=== PATIENT | male | born 1935 | race Caucasian/White ===

== ENCOUNTER 2022-05-28 16:11 | Inpatient (IN) | payer MEDICARE ==
[~2022-05-28] VITALS: Ht 177.8 cm; Wt 76.4 kg
[~2022-05-28 16:11] MED LIST: DIGOXIN0.25 MG PO; PRILOSEC20 MG OR; SG ASA LOW81 MG OR; TYLENOL 500MG TAB PO; ZOCOR20 MG OR
[2022-05-28 17:01] VITALS: BP 154/77
[2022-05-28 19:00] VITALS: BP 113/73
[2022-05-28 19:19] VITALS: BP 113/73
[2022-05-28 23:05] LABS: HEMATOCRIT 39.5 % (39.0-50.0); HEMOGLOBIN 12.7 g/dl (14.0-18.0); IMMATURE GRANULOCYTES 0.2 % (0.0-5.0); MEAN CELL VOLUME 86.6 fL CALC (80.0-100.0); MEAN CORPUSCULAR HGB 27.9 pG CALC (26.0-32.0); MEAN CORPUSCULAR HGB CONC 32.2 g/dL CAL (32.0-36.0); NEUT# 3.23 thou/uL (1.82-7.42); RED BLOOD COUNT 4.56 mill/uL (4.70-6.10); RED CELL DISTRI WIDTH 12.9 % (11.5-15.5)
[2022-05-28 23:21] LABS: ALBUMIN 3.3 g/dL (3.2-5.0); ALKALINE PHOSPHATASE 68 u/l (38-126); ANION GAP 9 (6-22 (CALC)); BILIRUBIN, TOTAL 0.5 mg/dL (0.0-1.4); BUN 23 mg/dL (8-23); BUN/CREATININE RATIO 22 (12-20 (CALC)); CHLORIDE 108 mmol/l (95-108); GFR FOR AFR.AMER. > 60 ML/MIN (>=60 (CALC)); GFR OTHER RACES > 60 ML/MIN (>=60 (CALC)); POTASSIUM 4.1 mmol/l (3.5-5.1); SGOT/AST 21 u/l (19-48); SODIUM 136 mmol/l (137-146); TOTAL PROTEIN 6.2 g/dL (6.3-8.2)
[2022-05-28 23:59] LABS: CARBON DIOXIDE 23 mmol/l (22-30)
[2022-05-29 04:33] VITALS: BP 135/75
[2022-05-29 06:22] VITALS: BP 145/68
[2022-05-29 07:18] VITALS: BP 145/68
[2022-05-29] MEDS ORDERED: LEVOTHYROXIN25 MC1 PO (11:39)
[2022-05-29] MEDS ORDERED: LASIX 20 MG TAB20 MG PO (11:39)
[2022-05-29] MEDS ORDERED: PRAVASTATIN SOD20 MG PO (16:33)
[2022-05-29] MEDS ORDERED: CORDARONE/PACE100 MG PO (16:34)
[2022-05-29 18:30] VITALS: BP 146/92
[2022-05-29 18:48] VITALS: BP 165/96
[2022-05-29 19:10] VITALS: BP 145/89
[2022-05-30 04:08] VITALS: BP 132/74
[2022-05-30 09:30] VITALS: BP 129/64
[2022-05-30] MEDS ORDERED: CORDARONE/200 MG/TAB PO (10:46)
[2022-05-30] MEDS ORDERED: ASPIRIN ADULT L81 M2 PO (10:46)
[2022-05-30] MEDS ORDERED: PROAIR HFA IN (10:47)
[2022-05-30] MEDS ORDERED: [UNRECOGNIZED DRUG - OTHER] PO (10:47)
[2022-05-30] MEDS ORDERED: LASIX 20 MG TAB20 MG PO (10:47)
[2022-05-30] MEDS ORDERED: SYNTHROID25 MCG PO (10:48)
[2022-05-30] MEDS ORDERED: VIBRAMYCIN100 M2 PO (10:53)
[2022-05-30] MEDS ORDERED: AMOX/K CLAV875 M1 PO (10:53)
== END 2022-05-30 15:00 | disposition home or self-care (01) | DRG 728 ==
LOC: MS2 16:11
PROVIDERS: ADMIT Internal Medicine; ATTEND Internal Medicine
PROC: 0V95XZZ Drainage of Scrotum, External Approach (ICD-10-PCS; principal; 2022-05-29)
PROC: 0H9HXZZ Drainage of Right Upper Leg Skin, External Approach (ICD-10-PCS; 2022-05-29)
PROC: 0HBAXZZ Excision of Inguinal Skin, External Approach (ICD-10-PCS; 2022-05-29)
PROC: 0HBHXZZ Excision of Right Upper Leg Skin, External Approach (ICD-10-PCS; 2022-05-29)
DX: N49.2 Inflammatory disorders of scrotum (principal); L02.415 Cutaneous abscess of right lower limb; I12.9 Hypertensive chronic kidney disease with stage 1 through stage 4 chronic kidney disease, or unspecified chronic kidney disease; N18.9 Chronic kidney disease, unspecified; I48.0 Paroxysmal atrial fibrillation; E03.9 Hypothyroidism, unspecified; Z20.822 Contact with and (suspected) exposure to COVID-19
CPT/HCPCS: J0692

== ENCOUNTER 2024-04-16 08:23 | Emergency (ER) | payer MEDICARE ==
[~2024-04-16] VITALS: Ht 177.8 cm; Wt 79.0 kg
[~2024-04-16 08:23] MED LIST changes: +AMOX/K CLAV875 M1 PO; +ASPIRIN ADULT L81 M2 PO; +CORDARONE/200 MG/TAB PO; +CORDARONE/PACE100 MG PO; +LASIX 20 MG TAB20 MG PO; +LEVOTHYROXIN25 MC1 PO; +PRAVASTATIN SOD20 MG PO; +PROAIR HFA IN; +SYNTHROID25 MCG PO; +VIBRAMYCIN100 M2 PO; +[UNRECOGNIZED DRUG - OTHER] PO
[2024-04-16 08:27] VITALS: BP 128/92
[2024-04-16 08:30] VITALS: BP 123/81
[2024-04-16 08:45] VITALS: BP 125/76
[2024-04-16] MEDS ORDERED: CEPHALEXIN MONOHYDRATE 500 MG/CAP PO ONE (08:55)
[2024-04-16] MEDS ORDERED: SULFAMETHOXAZOLE W/TRIMETHOPRI 1 COMBO TAB PO ONE (08:55)
[2024-04-16 09:00] VITALS: BP 114/70
[2024-04-16 09:15] VITALS: BP 114/73
[2024-04-16] MEDS ORDERED: CEPHALEXIN500 MG PO (09:25)
[2024-04-16] MEDS ORDERED: BACTRIM DS1 TAB PO (09:25)
[2024-04-16] MEDS ORDERED: TRAMADOL HYDROC50 M1 PO (09:26)
[2024-04-16 09:30] VITALS: BP 114/73
== END 2024-04-16 09:42 | disposition home or self-care (01) ==
LOC: ED 08:23
DX: L03.012 Cellulitis of left finger (principal); I10 Essential (primary) hypertension

== ENCOUNTER 2024-06-02 09:58 | Emergency (ER) | payer MEDICARE ==
[~2024-06-02] VITALS: Ht 177.8 cm; Wt 79.3 kg
[~2024-06-02 09:58] MED LIST changes: +BACTRIM DS1 TAB PO; +CEPHALEXIN500 MG PO; +TRAMADOL HYDROC50 M1 PO
[2024-06-02 10:05] VITALS: BP 154/102
[2024-06-02 10:16] VITALS: BP 119/102
[2024-06-02 10:22] LABS: BASO% 1.3 % (0-3); EOS% 6.7 % (0-8); HEMATOCRIT 44.5 % (39.0-50.0); HEMOGLOBIN 13.8 g/dl (14.0-18.0); IMMATURE GRANULOCYTES 0.4 % (0.0-5.0); LYMPH% 23.3 % (15-41); MEAN CELL VOLUME 89.2 fL CALC (80.0-100.0); MEAN CORPUSCULAR HGB 27.7 pG CALC (26.0-32.0); NEUT# 3.1 thou/uL (1.82-7.42); NEUT% 59.3 % (42-76); RED BLOOD COUNT 4.99 mill/uL (4.70-6.10); RED CELL DISTRI WIDTH 13.5 % (11.5-15.5)
[2024-06-02 10:30] VITALS: BP 125/73
[2024-06-02 10:35] LABS: ALBUMIN 3.7 g/dL (3.2-5.0); ALKALINE PHOSPHATASE 64 u/l (38-126); ANION GAP 13 (6-22 (CALC)); BILIRUBIN, TOTAL 0.6 mg/dL (0.2-1.3); BUN 15 mg/dL (8-23); BUN/CREATININE RATIO 14 (12-20 (CALC)); CARBON DIOXIDE 28 mmol/l (22-30); CHLORIDE 104 mmol/l (95-108); CREATININE 1.1 mg/dL (0.7-1.3); ESTIMATED GFR 65 ML/MIN (>=90 (CALC)); POTASSIUM 4.1 mmol/l (3.5-5.1); SGOT/AST 25 u/l (19-48); SODIUM 141 mmol/l (137-146); TOTAL PROTEIN 6.2 g/dL (6.3-8.2)
[2024-06-02 10:45] VITALS: BP 129/69
[2024-06-02 11:01] VITALS: BP 146/78
[2024-06-02 11:31] VITALS: BP 146/78
== END 2024-06-02 11:37 | disposition home or self-care (01) ==
LOC: ED 09:58
PROVIDERS: Family Medicine
DX: R53.1 Weakness (principal); I10 Essential (primary) hypertension

== ENCOUNTER 2024-08-29 18:50 | Emergency (ER) | payer MEDICARE ==
[~2024-08-29] VITALS: Ht 177.8 cm; Wt 79.0 kg
[2024-08-29 18:56] VITALS: BP 126/67
[2024-08-29 19:01] VITALS: BP 121/68
[2024-08-29] MEDS ORDERED: LORTAB 1010 MG PO (19:20)
[2024-08-29] MEDS ORDERED: HYDROcodone/Acetaminophen 1 COMBO TAB PO ONE (19:25)
[2024-08-29 19:30] VITALS: BP 126/78
[2024-08-29 20:01] VITALS: BP 129/86
[2024-08-29 20:08] VITALS: BP 129/86
== END 2024-08-29 20:08 | disposition home or self-care (01) ==
LOC: ED 18:50
DX: S82.841A Displaced bimalleolar fracture of right lower leg, initial encounter for closed fracture (principal); I10 Essential (primary) hypertension; W20.8XXA Other cause of strike by thrown, projected or falling object, initial encounter